=== PATIENT | female | born 1970 | race Two or more races ===

== ENCOUNTER 2019-12-25 05:45 | Inpatient (IN) | payer OTHER ==
[2019-12-25] MEDS ORDERED: NEURONTIN600 M1 PO (12:10)
[2019-12-25] MEDS ORDERED: COLACE100 MG PO (12:10)
[2019-12-25] MEDS ORDERED: ULTRACET PO (12:10)
== END 2019-12-28 08:45 | disposition home or self-care (01) | DRG 351 ==
LOC: CIR.AMB 05:45 → EDBD 07:30 → O/R 19:52 → SURH 19:52
PROVIDERS: ADMIT Surgery; ATTEND Surgery
PROC: 0WCG4ZZ Extirpation of Matter from Peritoneal Cavity, Percutaneous Endoscopic Approach (ICD-10-PCS; 2019-12-25)
PROC: BW21ZZZ Computerized Tomography (CT Scan) of Abdomen and Pelvis (ICD-10-PCS; 2019-12-25)
PROC: 0YU54JZ Supplement Right Inguinal Region with Synthetic Substitute, Percutaneous Endoscopic Approach (ICD-10-PCS; principal; 2019-12-25 07:00)
DX: K40.30 Unilateral inguinal hernia, with obstruction, without gangrene, not specified as recurrent (principal); K91.871 Postprocedural hematoma of a digestive system organ or structure following other procedure; K91.841 Postprocedural hemorrhage of a digestive system organ or structure following other procedure